=== PATIENT | female | born 1990 ===

== ENCOUNTER 2016-11-21 13:25 | Emergency (ER) | payer OTHER ==
[~2016-11-21] VITALS: Ht 157.5 cm; Wt 63.6 kg
[~2016-11-21 13:25] MED LIST: MOTRIN 800800 MG/TAB PO; PERCOCET 325 MG1 TA2 PO; PRENATAL1 TA7 PO
[2016-11-21 13:31] VITALS: BP 135/68; PULSE 76; TEMP 97.5
== END 2016-11-21 15:04 | disposition home or self-care (01) ==
LOC: COL.ER 13:25
DX: O9A.212 Injury, poisoning and certain other consequences of external causes complicating pregnancy, second trimester (principal); S40.212A Abrasion of left shoulder, initial encounter; Z3A.24 24 weeks gestation of pregnancy; V43.52XA Car driver injured in collision with other type car in traffic accident, initial encounter; Y92.410 Unspecified street and highway as the place of occurrence of the external cause

== ENCOUNTER 2016-11-21 15:20 | Outpatient (CLI) | payer OTHER ==
[~2016-11-21] VITALS: Ht 160 cm; Wt 63.6 kg
[2016-11-21 15:00] VITALS: BP 116/60; PULSE 78; TEMP 98.1
[2016-11-21 15:30] VITALS: PULSE 76
[2016-11-21 16:30] VITALS: BP 119/70; PULSE 80
== END 2016-11-21 16:53 | disposition home or self-care (01) ==
LOC: LDRO 15:20
DX: Z04.1 Encounter for examination and observation following transport accident (principal); Z33.1 Pregnant state, incidental; Z3A.24 24 weeks gestation of pregnancy

== ENCOUNTER 2017-01-19 12:43 | Inpatient (IN) | payer MEDICAID ==
[~2017-01-19] VITALS: Ht 157.5 cm; Wt 71.4 kg
[2017-03-03] VITALS (20 sets, daily range): BP systolic 102–147; BP diastolic 53–91; PULSE 66–106; TEMP 97.5–98.4
[2017-03-03 05:49] LABS: BASO # 0.1 (0.0-0.2); BASO % 0.5 % (0.0-2.0); EOS # 0.1 (0.0-0.7); EOS % 0.8 % (0-4.0); GRAN # 7.4 (1.4-6.5); GRAN % 62.9 % (42.2-75.2); HEMATOCRIT 39.1 % (37.0-47.0); HEMOGLOBIN 13.2 g/dl (12.5-16.0); LYMPH # 3.1 (1.2-3.4); LYMPH % 26.6 % (20.0-51.0); MEAN CELL VOLUME 91 fl (80.0-100.0); MEAN CORPUSCULAR HEMOGLOBIN 31 pg (27.0-31.0); MEAN CORPUSCULAR HGB CONC 34 g/dl (33.0-37.0); MEAN PLATELET VOLUME 11.4 fl (7.4-10.4); MONO % 8.7 % (1.7-9.3); PLATELET COUNT 260 K/mm3 (130-400); RED BLOOD COUNT 4.31 M/mm3 (4.10-5.30); WHITE BLOOD COUNT 11.7 K/mm3 (4.8-10.8)
[2017-03-04 03:02] VITALS: BP 102/62; PULSE 75; TEMP 97.8
[2017-03-04 08:15] VITALS: BP 87/61; PULSE 84; TEMP 98.5
[2017-03-04 16:35] VITALS: BP 117/66; PULSE 84; TEMP 98.3
[2017-03-04 19:40] VITALS: BP 115/68; PULSE 76; TEMP 98.4
[2017-03-05 09:00] VITALS: BP 112/63; PULSE 71; TEMP 98.4
[2017-03-05] MEDS ORDERED: PERCOCET 325 MG1 TA2 PO (12:46)
[2017-03-05] MEDS ORDERED: IBU800 M1 PO (12:46)
== END 2017-03-05 15:05 | disposition home or self-care (01) | DRG 766 ==
LOC: OB 03-03 05:36 → LDR 03-03 10:09 → OB 03-05 15:05 → EDSTATUS 03-10 07:04 → LDRO 03-10 12:43
PROVIDERS: Obstetrics & Gynecology
PROC: 10D00Z1 Extraction of Products of Conception, Low, Open Approach (ICD-10-PCS; principal; 2017-03-03)
DX: O34.211 Maternal care for low transverse scar from previous cesarean delivery (principal); N85.8 Other specified noninflammatory disorders of uterus; Z3A.39 39 weeks gestation of pregnancy; Z37.0 Single live birth
CPT/HCPCS: J0690; J1885; J2175; J2210; J2270; J2405; J2590; J7120

== ENCOUNTER 2018-08-16 05:32 | Inpatient (IN) | payer BC, MEDICAID ==
[~2018-08-16] VITALS: Ht 160 cm; Wt 72.7 kg
[2018-08-16] VITALS (19 sets, daily range): BP systolic 105–127; BP diastolic 60–81; PULSE 63–100; TEMP 97.7–98.4
[~2018-08-16 05:32] MED LIST changes: +IBU800 M1 PO
--- NOTE | 2018-08-16 05:45 | NUR ---
Ambulatory to unit for scheduled repeat C/S.
[2018-08-16 06:45] LABS: BASO % 0.5 % (0.0-2.0); EOS # 0.1 (0.0-0.7); EOS % 1.1 % (0-4.0); GRAN # 5.4 (1.4-6.5); GRAN % 61.3 % (42.2-75.2); HEMOGLOBIN 12.3 g/dl (12.5-16.0); LYMPH # 2.4 (1.2-3.4); LYMPH % 26.9 % (20.0-51.0); MEAN CELL VOLUME 91 fl (80.0-100.0); MEAN CORPUSCULAR HEMOGLOBIN 30 pg (27.0-31.0); MEAN CORPUSCULAR HGB CONC 33 g/dl (33.0-37.0); MEAN PLATELET VOLUME 11.2 fl (7.4-10.4); MONO # 0.8 (0.1-0.6); MONO % 9.4 % (1.7-9.3); PLATELET COUNT 245 K/mm3 (130-400); RED BLOOD COUNT 4.06 M/mm3 (4.10-5.30); REDCELL DISTRIBUTION WIDTH-CV 14.1 % (11.5-14.5)
[2018-08-17 07:00] VITALS: BP 112/78; PULSE 82; TEMP 98.1
--- NOTE | 2018-08-17 09:38 | NUR ---
Initial visit; Parents thanked Transportation Equipment Painter for offering congratulations and God's blessings to their family for the of their daughter. Transportation Equipment Painter thanked them for choosing [facility].
[2018-08-17 17:13] VITALS: BP 116/60; PULSE 68; TEMP 97.7
[2018-08-17 21:30] VITALS: BP 117/66; PULSE 78; TEMP 98.8
[2018-08-18 08:20] VITALS: BP 113/70; PULSE 87; TEMP 98.7
[2018-08-18 16:10] VITALS: BP 120/66; PULSE 94; TEMP 98.3
[2018-08-18 20:05] VITALS: BP 125/68; PULSE 89; TEMP 98
[2018-08-19 08:20] VITALS: BP 112/66; PULSE 67; TEMP 97.8
[2018-08-19] MEDS ORDERED: MOTRIN 800800 MG/TAB PO (08:25)
[2018-08-19] MEDS ORDERED: PERCOCET 325 MG1 TA2 PO (08:26)
== END 2018-08-19 12:00 | disposition home or self-care (01) | DRG 788 ==
LOC: OB 05:32 → LDR 07:12 → OB 07:20
PROVIDERS: ADMIT Obstetrics & Gynecology
PROC: 10D00Z1 Extraction of Products of Conception, Low, Open Approach (ICD-10-PCS; principal; 2018-08-16)
DX: O34.211 Maternal care for low transverse scar from previous cesarean delivery (principal); Z3A.39 39 weeks gestation of pregnancy; Z37.0 Single live birth; O69.81X0 Labor and delivery complicated by cord around neck, without compression, not applicable or unspecified
CPT/HCPCS: J0690; J1885; J2270; J2370; J2405; J2590; J7120

== ENCOUNTER → 2020-03-23 | Outpatient (CLI) | payer BC, MEDICAID | LOC: ZCOL.LAB 09:30 | DX: Z20.828 Contact with and (suspected) exposure to other viral communicable diseases (principal) ==

== ENCOUNTER 2020-03-29 05:38 | Inpatient (IN) | payer BC, MEDICAID ==
[~2020-03-29] VITALS: Ht 160 cm; Wt 74.5 kg
[2020-03-29] VITALS (43 sets, daily range): BP systolic 79–124; BP diastolic 50–86; PULSE 53–99; TEMP 97.3–98.8
--- NOTE | 2020-03-29 06:13 | NUR ---
0545 PT AMBULATORY TO RM 210. CHANGED INTO GOWN, FM APPLIED. CONSENTS SIGNED AND VITAL SIGNS WITHIN NORMAL LIMITS.
--- NOTE | 2020-03-29 06:25 | NUR ---
Patient resting comfortably in bed. IV started in right hand, labs collected from IV site and sent to lab. LR bolus infusing per order. Admission assessment completed. Lower abdominal mons area shaved and chlorhexidine scrub used on incision site.
[2020-03-29] MEDS ORDERED: PRENATAL TABLET PO (06:30)
[2020-03-29 06:36] LABS: BASO % 0.4 % (0.0-2.0); EOS # 0.1 (0.0-0.7); EOS % 0.9 % (0-4.0); GRAN # 5.7 (1.4-6.5); GRAN % 62.8 % (42.2-75.2); HEMOGLOBIN 12.1 g/dl (12.5-16.0); LYMPH # 2.5 (1.2-3.4); LYMPH % 27.4 % (20.0-51.0); MEAN CELL VOLUME 92 fl (80.0-100.0); MEAN CORPUSCULAR HEMOGLOBIN 31 pg (27.0-31.0); MEAN CORPUSCULAR HGB CONC 33 g/dl (33.0-37.0); MEAN PLATELET VOLUME 11.5 fl (7.4-10.4); MONO # 0.7 (0.1-0.6); MONO % 7.8 % (1.7-9.3); PLATELET COUNT 251 K/mm3 (130-400); RED BLOOD COUNT 3.96 M/mm3 (4.10-5.30); REDCELL DISTRIBUTION WIDTH-CV 14.6 % (11.5-14.5)
[2020-03-29 06:39] LABS: HEMATOCRIT 36.3 % (37.0-47.0)
[2020-03-29] MEDS ORDERED: MOTRIN 800800 MG/TAB PO (08:31)
[2020-03-29] MEDS ORDERED: PERCOCET 325 MG1 TA2 PO (08:31)
--- NOTE | 2020-03-29 10:40 | NUR ---
Dr. Orosco called after moderate free flow and baseball sized clot expressed. fundus firms with massage but boggy to begin fundal massage. Vital signs reported. Orders received. 1041: Methergine 0.2mg given IM. Fudus massaged, firm at umbilicus, small amout of free flow noted. 1100: Rashad Cardoso RN in room for fundal massage. Heavy free flow with clots noted. Fundus massaged until firm. VS 79/53, pulse 75, patient nauseated. Head of bed down. Dr. Orosco called with report on vaginal bleeding and vital signs. Orders received. 1105: LR 500ml with 30 units pitcoin infusing gravity drip. 1106: Cytotec 800mcg given rectally. While giving cytotec heavy vaginal free flow and clots. Dr. Orosco called to come to hospital. Fundus massaged and firms with massage but moderate to heavy free flow noted. 1123: Dr. Orosco here to observe bleeding. Fundus massaged and firm at umbilicus with moderate free flow noted. Verbal order for stat CBC. When pitocin infused LR 125ml/hr. Lab called for CBC. 1145: LR infusing at 125ml/hr. Patient still resting in bed, feeling more pain in abdomen from fundal massage. Morphine 2mg given IVP at 1142. 1200: Dr. Orosco called with lab results and update on free flow and vital signs. Order for CBC at 0600 on 03/30/2020.
[2020-03-29 11:52] LABS: HEMOGLOBIN 11.4 g/dl (12.5-16.0); MEAN CELL VOLUME 94 fl (80.0-100.0); MEAN CORPUSCULAR HEMOGLOBIN 31 pg (27.0-31.0); MEAN CORPUSCULAR HGB CONC 33 g/dl (33.0-37.0); MEAN PLATELET VOLUME 11.5 fl (7.4-10.4); PLATELET COUNT 231 K/mm3 (130-400); REDCELL DISTRIBUTION WIDTH-CV 14.7 % (11.5-14.5)
[2020-03-29 11:54] LABS: HEMATOCRIT 34.7 % (37.0-47.0)
--- NOTE | 2020-03-29 15:14 | NUR ---
REPORT TO Olivia DAVIDSON LPN. PATIENT RESTING IN BED HOLDING INFANT. CALL LIGHT IN REACH.
[2020-03-30 04:00] VITALS: BP 112/62; PULSE 71; TEMP 98.4
[2020-03-30 07:31] LABS: BASO # 0.1 (0.0-0.2); BASO % 0.5 % (0.0-2.0); EOS # 0.1 (0.0-0.7); EOS % 0.3 % (0-4.0); GRAN # 11.1 (1.4-6.5); GRAN % 75.1 % (42.2-75.2); HEMATOCRIT 27.9 % (37.0-47.0); HEMOGLOBIN 9.2 g/dl (12.5-16.0); LYMPH # 2.6 (1.2-3.4); LYMPH % 17.4 % (20.0-51.0); MEAN CELL VOLUME 93 fl (80.0-100.0); MEAN CORPUSCULAR HEMOGLOBIN 31 pg (27.0-31.0); MEAN CORPUSCULAR HGB CONC 33 g/dl (33.0-37.0); MEAN PLATELET VOLUME 11.6 fl (7.4-10.4); MONO # 0.9 (0.1-0.6); MONO % 6.2 % (1.7-9.3); PLATELET COUNT 210 K/mm3 (130-400); REDCELL DISTRIBUTION WIDTH-CV 14.5 % (11.5-14.5)
[2020-03-30 08:30] VITALS: BP 106/58; PULSE 82; TEMP 97.9
[2020-03-30 12:37] VITALS: BP 96/51; PULSE 84; TEMP 98.2
[2020-03-30 16:26] VITALS: BP 101/56; PULSE 78; TEMP 97.9
[2020-03-30 19:45] VITALS: BP 101/62; PULSE 69; TEMP 98.2
[2020-03-31 07:55] VITALS: BP 111/57; PULSE 77; TEMP 98
[2020-03-31 15:50] VITALS: BP 114/59; PULSE 94; TEMP 97.4
[2020-03-31 20:24] VITALS: BP 103/57; PULSE 69; TEMP 97.9
[2020-04-01 07:53] VITALS: BP 116/64; PULSE 74; TEMP 97.8
--- NOTE | 2020-04-01 10:07 | NUR ---
Patient given discharge instructions and reviewed plan of care for follow up. Patient denies questions.
== END 2020-04-01 11:14 | disposition home or self-care (01) | DRG 787 ==
LOC: OB 05:38
PROVIDERS: ADMIT Obstetrics & Gynecology
PROC: 10D00Z1 Extraction of Products of Conception, Low, Open Approach (ICD-10-PCS; principal; 2020-03-29)
DX: O34.211 Maternal care for low transverse scar from previous cesarean delivery (principal); O72.1 Other immediate postpartum hemorrhage; Z3A.39 39 weeks gestation of pregnancy; O99.02 Anemia complicating childbirth; D64.9 Anemia, unspecified; Z37.0 Single live birth
CPT/HCPCS: J0690; J1885; J2210; J2270; J2370; J2405; J2590; J7120

== ENCOUNTER 2021-12-02 05:39 | Inpatient (IN) | payer BC, MEDICAID ==
[~2021-12-02] VITALS: Ht 160 cm; Wt 78.6 kg
[2021-12-02] VITALS (20 sets, daily range): BP systolic 96–145; BP diastolic 43–80; PULSE 56–101; TEMP 97.3–98.8
[~2021-12-02 05:39] MED LIST changes: +PRENATAL TABLET PO
--- NOTE | 2021-12-02 05:50 | NUR ---
PATIENT AND SPOUSE AMBULATORY TO UNIT. CHANGED INTO CLEAN GOWN. EFM AND TOCO ON AND TRACING. VITALS TAKEN. PATIENT REPORTS GFM, NO LOF OR CONSISTENT CONTRACTIONS. NO BLEEDING CONCERNS. 0555- IV STARTED IN LEFT HAND BY THIS RN. 0600- CONSENTS BEING SIGNED BY PATIENT AND WITNESSED BY Olivia DIAZ RN. EFM AND TOCO STILL ON AND TRACING. CALL LIGHT WITHIN REACH.
[2021-12-02 06:09] LABS: BASO % 0.4 % (0.0-2.0); EOS # 0.1 K/mm3 (0.0-0.7); EOS % 0.8 % (0.0-4.0); GRAN # 6.8 K/mm3 (1.4-6.5); GRAN % 65.8 % (42.2-75.2); HEMOGLOBIN 12.2 g/dl (12.5-16.0); LYMPH # 2.6 K/mm3 (1.2-3.4); LYMPH % 24.9 % (20.0-51.0); MEAN CELL VOLUME 89 fl (80.0-100.0); MEAN CORPUSCULAR HEMOGLOBIN 30 pg (27-31); MEAN CORPUSCULAR HGB CONC 34 g/dl (33.0-37.0); MEAN PLATELET VOLUME 11.3 fl (7.4-10.4); MONO # 0.8 K/mm3 (0.1-0.6); MONO % 7.5 % (1.7-9.3); PLATELET COUNT 258 K/mm3 (130-400); RED BLOOD COUNT 4.07 M/mm3 (4.10-5.30); REDCELL DISTRIBUTION WIDTH-CV 14.8 % (11.5-14.5)
[2021-12-02 06:11] LABS: HEMATOCRIT 36.1 % (37.0-47.0)
--- NOTE | 2021-12-02 08:15 | NUR ---
0815-Patient to PACU via bed. A&O x4. Denies pain or nausea. Recieved report from DAGO Gallardo, [facility] Fundal massage firm. Lochia WNL. Abdomen with dressing C/D/I, Binder placed. Bach to DD, Clear yellow urine return. SCDs bilaterally. Updated on plan of care and Safety.
--- NOTE | 2021-12-02 16:45 | NUR ---
Bach discontinued by this RN. Patient ambulated with steady gait to bathroom. Sarai care provided. Updated on plan of care and safety.
[2021-12-03 05:00] VITALS: BP 111/65; PULSE 80; TEMP 97.8
[2021-12-03 07:30] VITALS: BP 103/60; PULSE 75; TEMP 98
--- NOTE | 2021-12-03 10:02 | NUR ---
Initial visit; Parents thanked Share Holder for offering congratulations and God's blessings for the of their daughter. Share Holder thanked family for choosing [facility].
[2021-12-03 17:05] VITALS: BP 99/68; PULSE 75; TEMP 98
[2021-12-03 20:35] VITALS: BP 116/63; PULSE 85; TEMP 97.9
[2021-12-04] MEDS ORDERED: MOTRIN 800800 MG/TAB PO (06:44)
[2021-12-04] MEDS ORDERED: PERCOCET 325 MG1 TA2 PO (06:45)
[2021-12-04 07:30] VITALS: BP 113/66; PULSE 76; TEMP 98.3
[2021-12-04 16:50] VITALS: BP 117/68; PULSE 80; TEMP 97.7
[2021-12-04 20:45] VITALS: BP 129/73; PULSE 79; TEMP 98.3
[2021-12-05 07:10] VITALS: BP 106/70; PULSE 73; TEMP 98
--- NOTE | 2021-12-05 10:11 | NUR ---
DISCHARGE TEACHING COMPLETED. EDUCATED ON PRESCRIPTIONS AND FOLLOW UP APPOINTMENTS. QUESTIONS INVITED AND ANSWERED.
== END 2021-12-05 13:00 | disposition home or self-care (01) | DRG 788 ==
LOC: OB 05:39 → LDR 08:41 → OB 12-05 13:00
PROVIDERS: ADMIT Obstetrics & Gynecology
PROC: 10D00Z1 Extraction of Products of Conception, Low, Open Approach (ICD-10-PCS; principal; 2021-12-02)
DX: O34.211 Maternal care for low transverse scar from previous cesarean delivery (principal); O69.81X0 Labor and delivery complicated by cord around neck, without compression, not applicable or unspecified; Z3A.39 39 weeks gestation of pregnancy; Z37.0 Single live birth
CPT/HCPCS: J0171; J0690; J1885; J2370; J2405; J2590; J7120